=== PATIENT | female | born 1955 | race Caucasian/White ===

== ENCOUNTER 2017-04-04 01:39 | Emergency (ER) | payer OTHER ==
[~2017-04-04] VITALS: Ht 165.1 cm; Wt 84.0 kg
[~2017-04-04 01:39] MED LIST: AZO95 MG PO; EXCEDRIN EXTRA1 EACH PO; GARCINIA CAMBO1 EACH PO; GREEN TEA1 CAPSULE PO; L-GLUTAMINE500 MG PO; MULTIPLE VITAM1 EACH PO; PRAVASTATIN SOD40 MG PO; PREDNISONE50 MG PO; VENTOLIN HFA18 GM IH
[2017-04-04 02:16] LABS: HEMATOCRIT 46.4 % (36.0-46.0); MCH 28.9 PG (29.0-34.0); MCV 87.7 FL (83-99); MEAN PLAT.VOLUME 10.6 uM^3 (9.5-12.4); PLATELET COUNT 227 K/uL (156-360); RBC DIS.WIDTH-CV 12.7 % (11.8-14.6); RED BLOOD COUNT 5.29 M/uL (3.80-5.20); WHITE BLOOD COUNT 8.4 K/uL (4.1-10.2)
[2017-04-04 02:25] LABS: CHLORIDE 104 mEq/L (99-109); SODIUM 143 mEq/L (136-147)
[2017-04-04 02:27] LABS: GLUCOSE 198 mg/dL (70-99)
[2017-04-04 02:29] LABS: ANION GAP 15 MEQ/L (2-14); TOTAL BILIRUBIN 0.4 mg/dL (0.0-1.0)
[2017-04-04 02:31] LABS: ALKALINE PHOSPHATASE 103 IU/L (3-129); GFR ESTIMATE (CALCULATED) > 59 mL/min/
[2017-04-04 02:32] LABS: UREA NITROGEN (BUN) 29 mg/dL (9-23)
[2017-04-04] MEDS ORDERED: ZOFRAN4 MG PO (06:13)
[2017-04-04 06:14] VITALS: BP 112/80
[2017-04-04 06:16] LABS: ADD MIUA? YES; BILIRUBIN NEGATIVE; BLOOD SMALL; COLOR YELLOW ((YELLOW)); GLUCOSE (STRIP) NEGATIVE; KETONES 5; LEUKOCYTES NEGATIVE; NITRITE NEGATIVE; PROTEIN (STRIP) 30; SPECIFIC GRAVITY 1.019 (1.000-1.030); UROBILINOGEN 0.2 MG/DL (0.2-1.0)
[2017-04-04 06:20] LABS: BACTERIA RARE /HPF; CALCIUM OXALATE CRYSTALS 1+ /HPF; EPITHELIAL CELLS RARE /HPF; MUCUS 1+ /LPF; RED BLOOD CELLS 0-5 /HPF (0-5); UCUL ADDED? NO; WHITE BLOOD CELLS 0-5 /HPF (0-5)
== END 2017-04-04 06:23 | disposition home or self-care (01) ==
LOC: EME 01:39
DX: R11.2 Nausea with vomiting, unspecified (principal); R19.7 Diarrhea, unspecified; T36.0X5A Adverse effect of penicillins, initial encounter; D86.9 Sarcoidosis, unspecified; G47.30 Sleep apnea, unspecified
CPT/HCPCS: 80053; 81003; 85027; 99281; 99283; J2405; J7030